=== PATIENT | female | born 1945 | race Caucasian/White ===

== ENCOUNTER 2021-01-08 16:39 | Inpatient (IN) | payer OTHER ==
[~2021-01-08] VITALS: Ht 167.6 cm; Wt 81.6 kg
--- NOTE | 2021-01-08 17:05 | NUR ---
LAW HIGHTOWER AT PTS BEDSIDE
[2021-01-08] MEDS ORDERED: CINA30TA2 PO (17:14)
[2021-01-08] MEDS ORDERED: AMLO-212 PO (17:14)
[2021-01-08] MEDS ORDERED: FURO-144 PO (17:14)
[2021-01-08] MEDS ORDERED: ASPI-1169 PO (17:14)
[2021-01-08] MEDS ORDERED: ISOS60TA72 PO (17:14)
[2021-01-08] MEDS ORDERED: LISI10TA29 PO (17:14)
[2021-01-08] MEDS ORDERED: CARV12.52 PO (17:14)
[2021-01-08] MEDS ORDERED: SEVE800T8 PO (17:14)
--- NOTE | 2021-01-08 17:20 | NUR ---
ASKED ALESIA PEREIRA FOR COVID SWAB
--- NOTE | 2021-01-08 18:10 | NUR ---
ADLS DONE; PT NOTED WITH BLACK TARRY STOOL. ALL NEEDS MET AT THIS TIME. WILL NOTIFY LAW .
--- NOTE | 2021-01-08 18:15 | NUR ---
RAC #20G S/L; PATENT AND INTACT. COLLECTED BLOOD WORK AND SENT TO LAB
--- NOTE | 2021-01-08 18:20 | NUR ---
STOOL SAMPLE COLLECTED AND SENT TO LAB
--- NOTE | 2021-01-08 18:23 | NUR ---
XRAY AT PT'S BESIDE
[2021-01-08 18:30] LABS: BASOPHILS % (AUTO) 0.1 % (0.0-2.0); HEMATOCRIT 32 % (33-45); LYMPHOCYTES # (AUTO) 0.4 K/uL (0.8-4.8); LYMPHOCYTES % (AUTO) 3.9 % (20.0-44.0); MEAN CORPUSCULAR HGB CONC 34 g/dl (31.0-36.0); MEAN CORPUSCULAR VOLUME 100 fL (82-100); MONOCYTES # (AUTO) 0.4 K/uL (0.1-1.30); MONOCYTES % (AUTO) 3.8 % (2.0-12.0); NEUTROPHILS % (AUTO) 92.2 % (43.0-81.0); PLATELET COUNT (AUTO) 163 K/uL (150-450); WHITE BLOOD COUNT (AUTO) 9.8 K/uL (4.3-11.0)
[2021-01-08 18:35] LABS: OCCULT BLOOD STOOL POSITIVE (NEGATIVE)
--- NOTE | 2021-01-08 18:50 | NUR ---
COVID SWAB DONE AND SENT
[2021-01-08 19:25] LABS: TOTAL PROTEIN, SERUM 6.4 g/dL (6.4-8.2)
[2021-01-08 19:39] LABS: ALANINE AMINOTRANSFERASE 50 U/L (12-78); ALBUMIN 2.6 g/dL (3.4-5.0); ALKALINE PHOSPHATASE 58 U/L (46-116); ASPARTATE AMINOTRANSFERASE 116 U/L (15-37); BILIRUBIN,DIRECT 0.2 mg/dL (0.0-0.2); BILIRUBIN,TOTAL 0.6 mg/dL (0.2-1.0); CALCIUM, SERUM 7.7 mg/dL (8.5-10.1); CARBON DIOXIDE 20 mmol/L (21-32); CHLORIDE 91 mmol/L (98-107); GLUCOSE 213 mg/dL (74-106); POTASSIUM 3.7 mmol/L (3.5-5.1); SODIUM SERUM 131 mmol/L (136-145)
[2021-01-08 19:40] LABS: UREA NITROGEN, BLOOD 81 mg/dL (7-18)
--- NOTE | 2021-01-08 19:40 | NUR ---
BUN 81 CR 9.0
--- NOTE | 2021-01-08 20:01 | NUR ---
REPORT GIVEN TO RYAN LUCAS FOR ANDRES
[2021-01-08 20:20] LABS: CREATINE KINASE, TOTAL 1782 U/L (26-192)
--- NOTE | 2021-01-08 20:29 | NUR ---
DR ESCOBEDO ON THE PHONE W/ DR OBREGON, HOSPITALIST
--- NOTE | 2021-01-08 20:45 | NUR ---
RT AT PT'S BESIDE FOR ABG
[2021-01-08 20:55] LABS: ABG BASE EXCESS -5.7 mmol/L; ABG PCO2 23.5 mmHg (35.0-45.0); ABG PH 7.463 (7.350-7.450); ABG PO2 56.7 mmHg (75.0-100.0); COHb 0.3 % (0.5-1.5); MetHb 0.2 % (0.0-1.5); O2Hb 86.8 % (94.0-97.0); SITE, ABG Right Radial; VENT MODE, BG Simple Mask
--- NOTE | 2021-01-08 20:55 | NUR ---
PT TRANSFERRED TO [facility] 119-1 VIA ACLS PROTOCOL. VSS. ALL BELONGINGS WITH PT
[2021-01-08 21:00] VITALS: BP 113/51
[2021-01-08] MEDS ORDERED: ACETAMINOPHEN 325 MG TABLET PO PRN (21:30)
[2021-01-08] MEDS: DEXAMETHASONE SOD PHOSPHATE 10 MG/ML VIAL IV SCH (22:07)
--- NOTE | 2021-01-08 22:12 | NUR ---
[facility] RN NOTE JAMEL FROM PHARMACY INFOMED ME THAT DUE TO RENAL ISSUES NO LONGER PT NEED REMDESIVIR, ALSO PER JAMEL HE CONFIMES WITH DR OBREGON. ALL NEW ADMITTING ORDERS NOTED, AND INFORMED TO NURSE RYAN RN TO FOLLOW UP.
--- NOTE | 2021-01-08 22:30 | NUR ---
CEMENT RAILROAD CAR LOADER NOTE VERIFIED WITH MD PT ADMITTING STATUS, PER OK TO CHANGE TO TELE. NURSE RYAN INFORMED.
--- NOTE | 2021-01-08 23:00 | NUR ---
RN NOTE 2049 ADMITTED PT WITH DX OF COVID PNA. PT ROMANSH SPEAKING, TRANSLATED WITH OTHER NURSE, PT ALERT AND ORIENTED X3. NOT IN ANY DISTRESS. PT ON O2 VIA SIMPLE MASK AT 6L. SATING AT 95%. PT WITH AV SHUNT ON LEFT AR, BRUIT AND THRILL PRESENT. DRESSING INTACT, NO BLEEDING NOTED. PT IV LINE ON RAC, PATENT AND INTACT. SKIN CHECK DONE SOME REDNESS NOTED, AND BRUISES ON BOTH HAND WITH SKIN TEAR ON LHAND AND ABDOMEN AREA. CALLED PT DAUGHTER SHERI, OBTAINED PTS MEDICAL HISTORY. PER DAUGHTER PT TESTED COVID POSITIVE 5 DAYS AGO AND IN A FACILITY FOR QUARANTINE. PT LIVES WITH AND SON. WILL CONTINUE TO MONITOR.
[2021-01-09] VITALS (14 sets, daily range): BP systolic 89–152; BP diastolic 45–87
[2021-01-09 02:21] LABS: BASOPHILS # (AUTO) 0.1 K/uL (0.0-0.2); BASOPHILS % (AUTO) 0.5 % (0.0-2.0); HEMATOCRIT 34 % (33-45); HEMOGLOBIN 11.7 g/dL (11.5-14.8); LYMPHOCYTES # (AUTO) 0.4 K/uL (0.8-4.8); LYMPHOCYTES % (AUTO) 2.8 % (20.0-44.0); MEAN CORPUSCULAR HGB CONC 35 g/dl (31.0-36.0); MEAN CORPUSCULAR VOLUME 98 fL (82-100); MONOCYTES # (AUTO) 0.4 K/uL (0.1-1.30); MONOCYTES % (AUTO) 2.9 % (2.0-12.0); NEUTROPHILS # (AUTO) 12.2 K/uL (1.8-8.9); NEUTROPHILS % (AUTO) 93.8 % (43.0-81.0); PLATELET COUNT (AUTO) 166 K/uL (150-450); RED BLOOD CELL COUNT(AUTO) 3.42 MIL/uL (4.0-5.2)
[2021-01-09 02:49] LABS: ALANINE AMINOTRANSFERASE 47 U/L (12-78); ALBUMIN 2.4 g/dL (3.4-5.0); ALKALINE PHOSPHATASE 63 U/L (46-116); ASPARTATE AMINOTRANSFERASE 100 U/L (15-37); BILIRUBIN,TOTAL 0.6 mg/dL (0.2-1.0); CALCIUM, SERUM 7.7 mg/dL (8.5-10.1); CARBON DIOXIDE 22 mmol/L (21-32); CHLORIDE 90 mmol/L (98-107); GLUCOSE 279 mg/dL (74-106); POTASSIUM 4.2 mmol/L (3.5-5.1); SODIUM SERUM 131 mmol/L (136-145); TOTAL PROTEIN, SERUM 6.2 g/dL (6.4-8.2)
[2021-01-09 03:45] LABS: CREATININE 9.3 mg/dL (0.6-1.3); UREA NITROGEN, BLOOD 88 mg/dL (7-18)
[2021-01-09 03:46] LABS: C-REACTIVE PROTEIN 9.8 mg/dL (0.0-0.9)
--- NOTE | 2021-01-09 04:50 | NUR ---
RN NOTE PT TROPONIN TRENDING UP LATEST 0.490. PT DENIES CHEST PAIN. AFIB CONTROLLED ON TELE MONITOR SINCE ADMISSION. DR OBREGON MADE AWARE. NO ORDERS AT THIS TIME, PT WITH PENDING CARDIO CONSULT.
--- NOTE | 2021-01-09 07:28 | NUR ---
RN NOTE PT REMAINS IN BED. ON 10L O2 VIA SIMPLE MASK. PT WITH EPISODES OF REMOVING O2 MASK, DESATS TO 70S. NO SIGNS OF RESP DISTRESS NOTED. RE-EDUCATED PATIENT. DR OBREGON MADE AWARE. OBTAINED AN ORDER FOR WRIST SOFT RESTRAINTS. ENDORSED TO NEXT SHIFT NURSE FOR ANDRES.
--- NOTE | 2021-01-09 07:45 | NUR ---
RN MORNING NOTE PT RECEIVED IN BED AND IS CURRENTLY ON 10L O2 VIA SIMPLE MASK AND SATING 83%. PT IS AOX3 AND TURKS AND CAICOS ISLANDER SPEAKING. PT HAS SOFT WRIST RESTRAINTS DUE TO EPISODES OF REMOVING O2 MASK, DESATS TO 70S. NO SIGNS OF RESPIRATORY DISTRESS OR LABORED BREATHING NOTED. R AC 20G IS PATENT AND INTACT WITH NO SIGNS OF INFILTRATION, DEYVI AV SHUNT. BED IS LOCKED IN LOWEST POSITION X3 GUARDRAILS UP, CALL MALDONADO WITHIN REACH, AND ALL HOSPITAL SAFETY PRECAUTIONS ARE IN PLACE. WILL CONTINUE TO MONITOR THROUGHOUT SHIFT.
[2021-01-09] MEDS: DEXAMETHASONE SOD PHOSPHATE 10 MG/ML VIAL IV SCH (08:17)
--- NOTE | 2021-01-09 08:30 | NUR ---
RN NOTES PT BP 97/53 BP MEDICATIONS HELD
[2021-01-09] MEDS: ASPIRIN 81 MG TAB.CHEW PO SCH (08:46)
[2021-01-09] MEDS: SEVELAMER CARBONATE 800 MG POWD.PACK GT SCH ×3 (08:47→17:49)
[2021-01-09] MEDS: ISOSORBIDE MONONITRATE (30MG) 30 MG TAB.SR.24H PO SCH (08:47)
[2021-01-09] MEDS: CINACALCET HCL 30 MG TABLET PO SCH (08:47)
[2021-01-09] MEDS ORDERED: LISINOPRIL (10MG) 10 MG TABLET PO SCH (09:00)
[2021-01-09] MEDS ORDERED: FUROSEMIDE 40 MG TABLET PO SCH (09:00)
[2021-01-09] MEDS ORDERED: AMLODIPINE BESYLATE 5 MG TABLET PO SCH (09:00)
[2021-01-09] MEDS ORDERED: CARVEDILOL 12.5 MG TABLET PO SCH (09:00)
[2021-01-09] MEDS ORDERED: PIPERACILLIN /TAZOBACTAM 3.375 G in IV D5W 50 ML IV SCH (10:30)
[2021-01-09] MEDS: HEPARIN SODIUM, PORCINE 5000 UNITS/1 ML VIAL SQ SCH ×2 (10:48→17:48)
[2021-01-09] MEDS ORDERED: VANCOMYCIN 1 GM in IV D5W 250 ML IV ONE (11:00)
[2021-01-09] MEDS: PIPERACILLIN /TAZOBACTAM 2.25 G in IV D5W 50 ML IV SCH ×2 (12:46→21:17)
--- NOTE | 2021-01-09 18:30 | NUR ---
RN CLOSING NOTE PT LYING IN BED WITH HOB AT 30 DEGREES AND IS CURRENTLY ON 8L O2 VIA SIMPLE MASK AND SATING 95%. PT IS AOX3 AND LAO SPEAKING. PT HAS SOFT WRIST RESTRAINTS DUE TO EPISODES OF REMOVING O2 MASK, DESATS TO 70S. NO SIGNS OF RESPIRATORY DISTRESS OR LABORED BREATHING NOTED. R AC 20G IS PATENT AND INTACT WITH NO SIGNS OF INFILTRATION, DEYVI AV SHUNT. PT CURRENTLY RECEIVING HD. BED IS LOCKED IN LOWEST POSITION X3 GUARDRAILS UP, CALL MALDONADO WITHIN REACH, AND ALL HOSPITAL SAFETY PRECAUTIONS ARE IN PLACE. ALL NEEDS MET WILL ENDORSE TO KETTLE OPERATOR HEAD NURSE FOR ANDRES.
[2021-01-09] MEDS ORDERED: IV NS 0.9% 500 ML IV ONE ×2 (19:30→20:30)
--- NOTE | 2021-01-09 20:15 | NUR ---
ELECTRICAL SYSTEMS DESIGN ENGINEER CALL PLACED TO MINDI TO REQUEST PICC LINE PT WAS TRANSFERRED FROM [facility] S/P BOX WORKER FOR HYPOTENSION W/ORDERS TO START LEVOPHED FROM DR OBREGON. DR OBREGON UNAWARE THAT PT WAS TRANSFERRED TO ICU; HE DID NOT SIGN WRITER LETTERER OR PAINTER ORDERS TO TRANSFER OR START LEVO. UPDATED DR OBREGON ON PT SITUATION HE ORDERED NS 500 ML AND TO DC COREG.
--- NOTE | 2021-01-09 20:15 | NUR ---
RN NOTE 1927 AT CHANGE OF SHIFT DAY SHAYY CASTAÑEDA, RECEIVED ORDER FOR NS 500 ML BOLUS D/T BP 83/30. BOLUS WAS GIVEN VIA DIALYSIS ACCESS. THIS IS THE SECOND BOLUS FOR THIS PATIENT. 1940, BP TAKEN 43/19. HD STOPPED. HD LASTED ONLY ONE AND A HALF, JUST CLEANED, NO OUTPUT. DR. BLUE MANAGER OF CARE CALLED, NOTIFIED OF BP AND GAVE ORDERS TO CALL RAPID RESPONSE AT 1940 AND TRANSFER PATIENT TO ICU AND START LEVO. PATIENT RECEIVED ON 8L SIMPLE MASK, SATURATION 76%, CHANGE TO RNB 15L D/T PATIENT HAVING SOB. O2 SAT 99% ER NURSE AT [facility] AT BEDSIDE, HUMBERT[facility] NURSING PANEL FLOW MACHINE OPERATOR AT BEDSIDE, INFORMED DR. BLUE WANTS PATIENT TO BE TRANSFERRED TO ICU. RT AT BEDSIDE. 1943 BP 103/61 HR 101 O2 SAT 100%. AWAITING ICU BED. THERE IS A CODE IN ICU. STAND BY FOR TRANSFER. 1953 96/46 HR 93 O2 SAT 100%, RECEIVED BED 261. 2003 BP 40/19 HR 100 O2 SAT 100%. TRANSFER PATIENT, ALL MEDS, BELONGINGS AND CHART TAKEN WITH PATIENT. CALLED TO GIVE REPORT TO ABDELRAHMAN MENTAL HEALTH COORDINATOR. DR. OBREGON NOTIFIED OF PATIENT CHANGE IN CONDITION AND TRANSFER TO ICU AND STAT ABG DONE , WAITING FOR RESULT. UNABLE TO CALL FAMILY PATIENTS CHART WAS TAKEN DURING TRANSFER. 2010 PATIENT TRANSFER VIA ACLS PROTOCOL.
--- NOTE | 2021-01-09 20:20 | NUR ---
EMBOSSING MACHINE OPERATOR CALLED PTS DAUGHTER SHERI AND UPDATED HER REGARDING MOM BEING TRANSFERRED TO ICU AND TO OBTAIN CONSENT FOR PICC LINEL [facility] DID NOT INFORM PTS DAUGHTER OF TRANSFER.
--- NOTE | 2021-01-09 20:25 | NUR ---
ACCOUNT PROCESSOR PER REPORT PT IS A/O x3 HOWEVER PER NURSE SHE NEVER ASSESSED PT; PT APPEARS LETHARGIC NOT ANSWERING QUESTIONS; JUST MOANING. AFIB ON MONITOR HR 99 115/52 NRB 15 L 100%. REMOVED BLSW RESTRAINTS.
--- NOTE | 2021-01-09 20:30 | NUR ---
DR OBREGON AWARE OF PT MOVED TO ICU AND ALSO NURSE FROM ICU WILL FOLLOW UP WITH STAT ABG RESULT.
--- NOTE | 2021-01-09 20:30 | NUR ---
TRAVEL RN NS 500 ML BOLUS FROM 2029 SCANNED AND GIVEN IN ICU NOT IN [facility].
[2021-01-09 20:32] LABS: ABG BASE EXCESS -3.9 mmol/L; ABG OXYGEN SATURATION 97.2 % (92.0-98.5); ABG PCO2 23.4 mmHg (35.0-45.0); ABG PH 7.501 (7.350-7.450); ABG PO2 106.8 mmHg (75.0-100.0); AaDO2 582.8 mmHg; COHb 0.3 % (0.5-1.5); MetHb 0.2 % (0.0-1.5); O2Hb 96.7 % (94.0-97.0); SITE, ABG Right Radial; VENT MODE, BG NRB 15L 100%
--- NOTE | 2021-01-09 20:35 | NUR ---
COMMUTER PILOT RCD PT WITH YELLOW RING, YELLOW WATCH AND YELLOW/WHITE BRACELET NOT DOCUMENTED IN BELONGINGS SHEET.
--- NOTE | 2021-01-09 20:39 | NUR ---
VACUUM DRIER TENDER CALLED DR OBREGON TO INFORM OF ABG RESULTS pH 7.501 pCO2 23.4 pO2 106.[address] OBREGON CALL THE ORDERING MD ONCE AGAIN TOLD DR OBREGON IT WAS ORDERED UNDER HIS NAME. CALLED [facility] AND ASKED PRIMARY AND CHARGE WHO ORDERED ABG BOTH INSISTED DR OBREGON ORDERED IT. REPEATEDLY TOLD [facility] CHARGE DR OBREGON DENIES GIVING ANY ORDERS ON THIS PT. PER [facility] CHARGE HE WILL CALL DR OBREGON.
--- NOTE | 2021-01-09 23:00 | NUR ---
SLEEVE BASTER RCD CALL FROM PTS DAUGHTER SHERI EXPLAINED TO HER LEVOPHED WAS NEVER STARTED PER DAUGHTER SHE STATES SHE HAD ALREADY INFORMED MD THAT PTS BP DROPS DURING HD. DAUGHTER STATED MOM IS VERY ANXIOUS AND HAS A HARD TIME SEEING AND REQUESTED ALL LIGHTS BE TURNED OFF IN THE ROOM. DAUGHTER ATTEMPTED TO S/W PT HOWEVER PT IS AWAKE AND NOT ANSWERING; DR OBREGON MADE AWARE OF PTS NEURO STATUS.
[2021-01-10] VITALS (42 sets, daily range): BP systolic 89–205; BP diastolic 55–127
[2021-01-10 04:59] LABS: BASOPHILS % (AUTO) 0.1 % (0.0-2.0); HEMATOCRIT 30 % (33-45); HEMOGLOBIN 10.2 g/dL (11.5-14.8); LYMPHOCYTES # (AUTO) 0.3 K/uL (0.8-4.8); MEAN CORPUSCULAR HGB CONC 34 g/dl (31.0-36.0); MEAN CORPUSCULAR VOLUME 101 fL (82-100); MONOCYTES # (AUTO) 0.4 K/uL (0.1-1.30); MONOCYTES % (AUTO) 2.7 % (2.0-12.0); NEUTROPHILS % (AUTO) 95.2 % (43.0-81.0); PLATELET COUNT (AUTO) 171 K/uL (150-450); RED BLOOD CELL COUNT(AUTO) 2.98 MIL/uL (4.0-5.2); WHITE BLOOD COUNT (AUTO) 15.7 K/uL (4.3-11.0)
--- NOTE | 2021-01-10 05:10 | NUR ---
SCHEDULER CONVEYOR PT NOTED TO DESATURATE TO ABOUT 84% WHEN REMOVING NON REBREATHER MASK.
[2021-01-10] MEDS: IV NS 0.9% 250 ML IV PRN (05:15)
[2021-01-10] MEDS: PIPERACILLIN /TAZOBACTAM 2.25 G in IV D5W 50 ML IV SCH ×3 (05:16→21:27)
[2021-01-10 05:26] LABS: CALCIUM, SERUM 7.5 mg/dL (8.5-10.1); CARBON DIOXIDE 19 mmol/L (21-32); CHLORIDE 96 mmol/L (98-107); GLUCOSE 319 mg/dL (74-106); PHOSPHORUS 6.1 mg/dL (2.5-4.9); POTASSIUM 4.3 mmol/L (3.5-5.1); SODIUM SERUM 134 mmol/L (136-145); UREA NITROGEN, BLOOD 67 mg/dL (7-18)
[2021-01-10 05:35] LABS: CREATININE 7.5 mg/dL (0.6-1.3)
--- NOTE | 2021-01-10 08:00 | NUR ---
RN NOTES RECEIVED PATIENT ON 15L NON-REBREATHER MASK, RESTLESS, READING WHEN CALLED NAME OR TOUCHED, GIVING YES/OR NO ANSWERS. ASSIST TURN AND REPOSTION, ASSIST TOTAL BREAKFAST TOLERATED 75%. KEEP HOB ELEVATED ALL THE TIME DURING EATING. DUE MEDICATION ADMINISTERED VIA CRUSHED. SOFT BILATERAL RESTRAIN RECHECKED. PATIENT HAS HD SHUNT ON LEFT UA INTACT. IV ACCESS ON RIGHT AC AREA INTACT TKO INFUSING 10ML/HR. CALL LIGHT WITHIN TO REACH. WILL FOLLOW UP.
[2021-01-10] MEDS: DEXAMETHASONE SOD PHOSPHATE 10 MG/ML VIAL IV SCH (08:41)
[2021-01-10] MEDS: CINACALCET HCL 30 MG TABLET PO SCH (08:42)
[2021-01-10] MEDS: ASPIRIN 81 MG TAB.CHEW PO SCH (08:42)
[2021-01-10] MEDS: HEPARIN SODIUM, PORCINE 5000 UNITS/1 ML VIAL SQ SCH ×2 (08:42→17:28)
[2021-01-10] MEDS: SEVELAMER CARBONATE 800 MG POWD.PACK GT SCH ×3 (08:43→17:27)
[2021-01-10] MEDS ORDERED: VANCOMYCIN 500 MG in IV D5W 100 ML IV PRN (11:00)
[2021-01-10 11:27] LABS: ABG BASE EXCESS -7.2 mmol/L; ABG OXYGEN SATURATION 97.8 % (92.0-98.5); ABG PH 7.454 (7.350-7.450); ABG PO2 120.9 mmHg (75.0-100.0); AaDO2 570.1 mmHg; COHb 0.3 % (0.5-1.5); MetHb 0.1 % (0.0-1.5); O2Hb 97.4 % (94.0-97.0); SITE, ABG Right Radial; VENT MODE, BG non rebreather
[2021-01-10] MEDS: METOPROLOL TARTRATE 25 MG TABLET PO SCH ×2 (12:00→22:03)
--- NOTE | 2021-01-10 12:30 | NUR ---
rn notes held Lopressor at this time, because Imdur administered late, patient plan for HD, called HD nurse for confirm HD time. bp was 79/43 at this time , the increased 200/100 later . 1600-Per Dr Castellano patient willing to hemodialyzed tomorrow morning. will follow up.
--- NOTE | 2021-01-10 13:00 | NUR ---
rn notes patient put back to non-rebreather mask because of saturation going down. assist eating tolerated lunch 10%, assist turn and reflation q 2 hr.
[2021-01-10] MEDS: ISOSORBIDE MONONITRATE (30MG) 30 MG TAB.SR.24H PO SCH (14:47)
--- NOTE | 2021-01-10 18:30 | NUR ---
rn notes pm care done, due medication administered, vss, tolerated dinner 15% , patient prone to aspiration precaution, ,anuric, HD scheduled tomorrow am. assist turn and reposition q 2 hr. endorsed oncoming nurse follow plan of care.
[2021-01-11] VITALS (39 sets, daily range): BP systolic 81–157; BP diastolic 45–89
[2021-01-11] MEDS: IV NS 0.9% 250 ML IV PRN (00:37)
[2021-01-11 05:05] LABS: HEMATOCRIT 28 % (33-45); HEMOGLOBIN 9.6 g/dL (11.5-14.8); LYMPHOCYTES # (AUTO) 0.2 K/uL (0.8-4.8); LYMPHOCYTES % (AUTO) 1.6 % (20.0-44.0); MEAN CORPUSCULAR HGB CONC 35 g/dl (31.0-36.0); MEAN CORPUSCULAR VOLUME 102 fL (82-100); MONOCYTES # (AUTO) 0.2 K/uL (0.1-1.30); MONOCYTES % (AUTO) 1.8 % (2.0-12.0); NEUTROPHILS # (AUTO) 9.2 K/uL (1.8-8.9); NEUTROPHILS % (AUTO) 96.6 % (43.0-81.0); PLATELET COUNT (AUTO) 122 K/uL (150-450); RED BLOOD CELL COUNT(AUTO) 2.71 MIL/uL (4.0-5.2); WHITE BLOOD COUNT (AUTO) 9.6 K/uL (4.3-11.0)
[2021-01-11] MEDS: PIPERACILLIN /TAZOBACTAM 2.25 G in IV D5W 50 ML IV SCH ×3 (05:13→20:47)
[2021-01-11 05:44] LABS: CARBON DIOXIDE 18 mmol/L (21-32); CHLORIDE 94 mmol/L (98-107); POTASSIUM 4.5 mmol/L (3.5-5.1); SODIUM SERUM 133 mmol/L (136-145)
[2021-01-11 06:01] LABS: GLUCOSE 546 mg/dL (74-106)
[2021-01-11 06:02] LABS: CREATININE 8.8 mg/dL (0.6-1.3); UREA NITROGEN, BLOOD 91 mg/dL (7-18)
--- NOTE | 2021-01-11 06:16 | NUR ---
RN/ICU- CRITICAL LAB VALUE REPORTED BY LAB. BUN/CREATININE-91/8.7, BS-546, RELAYED TO DR. GHAZAL Key/ ORDER NOTED.
[2021-01-11] MEDS ORDERED: INSULIN REGULAR, HUMAN 100 UNIT/ML 3 ML VIAL SQ PRN (06:30)
[2021-01-11] MEDS ORDERED: *INSULIN REGULAR(HUMULIN R)HUM 100 UNIT/ML VIAL SQ PRN (06:30)
[2021-01-11] MEDS ORDERED: DEXTROSE 50%-WATER 50 ML DISP.SYRIN IV PRN ×2 (06:30→13:00)
--- NOTE | 2021-01-11 06:50 | NUR ---
RN/ICU- PT. REPOSITIONED TO SIDE, PT. RESTLESS, GRABBING O2 MASK, VERBAL REMINDER GIVEN, PT, REMAINS AGITATED AND NON-COMPLIANT.WILL OBTAIN ORDER FORM MD AND APPLY ALBARO. SOFT WRIST RESTRAINTS PER PROTOCOL.
[2021-01-11 07:20] LABS: C-REACTIVE PROTEIN 27.7 mg/dL (0.0-0.9)
--- NOTE | 2021-01-11 07:30 | NUR ---
RN NOTES RECEIVED PATIENT ON 15L NON-REBREATHER MASK, ASLEEP, LETHARGIC, RESPONDS TO NAME AND TOUCH, BREATHING LABORED BUT SATURATING AT 98%, GIVING YES/OR NO ANSWERS. ASSIST TURN AND REPOSITION, UNABLE TO EAT BREAKFAST, UNABLE TO FOLLOW COMMAND. KEEP HOB ELEVATED.SOFT BILATERAL RESTRAIN RECHECKED. PATIENT HAS HD SHUNT ON LEFT UA INTACT. IV ACCESS ON RIGHT AC AREA INTACT TKO INFUSING 10ML/HR. CALL LIGHT WITHIN TO REACH. WILL FOLLOW UP. FOR HD TODAY.
[2021-01-11] MEDS: BLOOD SUGAR DIAGNOSTIC 1 EACH STRIP IN SCH ×4 (07:43→17:43)
[2021-01-11] MEDS: ASPIRIN 81 MG TAB.CHEW PO SCH (08:17)
[2021-01-11] MEDS: SEVELAMER CARBONATE 800 MG POWD.PACK GT SCH ×3 (08:17→17:50)
[2021-01-11] MEDS: ISOSORBIDE MONONITRATE (30MG) 30 MG TAB.SR.24H PO SCH (08:22)
[2021-01-11] MEDS: CINACALCET HCL 30 MG TABLET PO SCH (08:22)
[2021-01-11] MEDS: DEXAMETHASONE SOD PHOSPHATE 10 MG/ML VIAL IV SCH ×3 (08:27→21:10)
[2021-01-11] MEDS: HEPARIN SODIUM, PORCINE 5000 UNITS/1 ML VIAL SQ SCH ×2 (08:29→17:52)
[2021-01-11] MEDS ORDERED: METOPROLOL TARTRATE 25 MG TABLET PO SCH ×2 (08:30→09:00)
--- NOTE | 2021-01-11 09:00 | NUR ---
RN NOTES PATIENT UNABLE TO SWALLOW VERY LETHARGIC. CHARGE NURSE AWARE. O2 SAT AT 96% NON REBREATHER MASK
[2021-01-11] MEDS ORDERED: METOPROLOL TARTRATE INJ 5 MG/5 ML AMPUL IVP SCH (09:30)
[2021-01-11] MEDS: INSULIN GLARGINE, 100 UNIT/ML CARTRIDGE SQ SCH ×2 (09:59→21:58)
[2021-01-11] MEDS: IV NS 0.9% 1,000 ML IV PRN (10:01)
--- NOTE | 2021-01-11 10:07 | NUR ---
RN NOTES' RELAYED TO DR. OBREGON PT PCR POSITIVE.
[2021-01-11] MEDS ORDERED: TOCILIZUMAB 400 MG in IV NS 0.9% 80 ML IV ONE (10:30)
[2021-01-11] MEDS: ALBUMIN 25% 25 GM in PREMIX 1 EA IV PRN (12:20)
[2021-01-11 12:50] LABS: ABG BASE EXCESS 0.4 mmol/L; ABG PCO2 36.4 mmHg (35.0-45.0); ABG PH 7.443 (7.350-7.450); ABG PO2 59.2 mmHg (75.0-100.0); AaDO2 617.4 mmHg; COHb 0.4 % (0.5-1.5); MetHb 0.3 % (0.0-1.5); O2Hb 87.4 % (94.0-97.0); SITE, ABG Right Radial; VENT MODE, BG NON REBREATHER
--- NOTE | 2021-01-11 12:59 | NUR ---
RN NOTES PT ONGOING DIALYSIS. 2 BOTTLES ALBUMIN GIVEN. LOW BP. ALSO NOTIFIED DR. OBREGON LABORED BREATHING USING ACCESSORY MUSCLE. ABG RELAYED. PER DR. OBREGON, OK TO INTUBATE IF OK IF OK WITH PULMO.
[2021-01-11] MEDS: METOPROLOL TARTRATE INJ 5 MG/5 ML AMPUL IVP SCH ×2 (13:00→17:54)
--- NOTE | 2021-01-11 13:00 | NUR ---
@ 1300 pt. placed into high flow nasal cannula due to 84% saturation and 59 paO2 on non rebreathing mask. high flow parameters below as order: flow 40L 100% fio2 Addendum: 01/11/21 at 1431 by MORGAN FRANCOIS RT Amended: Links added.
--- NOTE | 2021-01-11 13:17 | NUR ---
RN NOTES DAUGHTER SHERI - UPDATE GIVEN WITH PT HAVING LABORED BREATHING WITH USE OF ACCESSORY MUSCLE. INFORMED ABOUT PULVENESSA HIGHTOWER OKAYED FOR INTUBATION. PER DAUGHTER, SHE WILL CALL HER BROTHER FIRST.
--- NOTE | 2021-01-11 13:33 | NUR ---
RN NOTES PER SHERI - DAUGHTER, IS CONCERNED THAT HER MOM IS NOT EATING AND NOT DIALYSED, AND THAT THEY WANT TO TRANSFER THE PATIENT TO ANOTHER HOSPITAL. DAUGHTER INFORMED THAT HER MOM IS BEING DIALYSED BUT NOT COMPLETED DUE TO LOW BP. CHARGE NURSE NATHANAEL ALSO SPOKE WITH DAUGHTER, BUT STILL COULD NOT DECIDE AND ANSWERED ANOTHER PHONE CALL AND HANG UP.
[2021-01-11] MEDS: INSULIN REGULAR, HUMAN 100 UNIT/ML 3 ML VIAL SQ PRN ×2 (13:55→17:49)
--- NOTE | 2021-01-11 14:00 | NUR ---
RN NOTES PER DAUGHTER MEDHAT WADE TO INTUBATE.
--- NOTE | 2021-01-11 14:45 | NUR ---
RN NOTES POST HD, NOT COMPLETED. 2 HOURS ONLY. CLEANSING ONLY
[2021-01-11] MEDS ORDERED: VANCOMYCIN 1 GM in IV D5W 250 ML IV ONE (15:00)
--- NOTE | 2021-01-11 15:18 | NUR ---
@ 1518 PT INTUBATED DUE TO INCREASE WORK OF BREATHING AND FOR AIRWAY PROTECTION. INTUBATED WITH 7.5 ET TUBE SECURED @ 23 CM LIPLINE. CO2 DETECTOR CHANGED TO YELLOW COLOR POST INTUBATION. BREATH SOUNDS CLEAR BILATERAL WITH SYMMETRICAL CHEST RISE POST INTUBATION. VENT PARAMETERS BELOW ORDER: AC 24 VT 500 FIO2 100% PEEP +7 VENT IS PLUGGED INTO RED OUTLET WITH ALARMS ON AND FUNCTIONING. KAYLYNG @ BEDSIDE. Addendum: 01/11/21 at 1552 by MORGAN FRANCOIS RT Amended: Links added.
--- NOTE | 2021-01-11 15:18 | NUR ---
RN NOTES POST INTUBATION. ETT 7.5 AC 24 TV 500 FIO2 100% P 7 CXR ORDERED
--- NOTE | 2021-01-11 15:50 | NUR ---
ADDENDUM GAVE UPDATE TO DR. OBREGON.
[2021-01-11] MEDS ORDERED: ROCURONIUM BROMIDE 50 MG/5 ML IV ONE (15:58)
[2021-01-11] MEDS ORDERED: ETOMIDATE 2 MG/ML VIAL IV ONE (15:58)
[2021-01-11 17:27] LABS: ABG OXYGEN SATURATION 95.9 % (92.0-98.5); ABG PCO2 28.8 mmHg (35.0-45.0); ABG PH 7.492 (7.350-7.450); ABG PO2 85.9 mmHg (75.0-100.0); AaDO2 598.3 mmHg; COHb 0.3 % (0.5-1.5); MetHb 0.3 % (0.0-1.5); O2Hb 95.3 % (94.0-97.0); PEEP,BG 7 cm H2O; SITE, ABG Right Radial; VT, ABG 500 mL
--- NOTE | 2021-01-11 17:38 | NUR ---
vent changes below per dr. sosa: decrease rate from 24 to 20. RN NOTIFIED ON CHANGES MADE. Addendum: 01/11/21 at 1740 by MORGAN FRANCOIS RT Amended: Links added.
[2021-01-11] MEDS: PROPOFOL 100 ML IV PRN (17:39)
--- NOTE | 2021-01-11 19:27 | NUR ---
FULL STACK PHP DEVELOPER NOTES PT SEDATED ON DIPRIVAN 5MCG/KG/MIN. TOLERATING VENT SETTINGS WELL. NO SOB. ALL DUE MEDS GIVEN. NEEDS ATTENDED. KEPT CLEAN AND COMFORTABLE. SAFETY MEASURES IN PLACE. BED LOCKED AND IN LOWEST POSITON WITH SIDE RAILS UP. ENDORSED TO NIGHT RN FOR ANDRES. Addendum: 01/11/21 at 1931 by ISAIAS WESTON RN CORRECTION DIPRIVAN TO 10 MCG AT 1754
[2021-01-12] VITALS (40 sets, daily range): BP systolic 82–132; BP diastolic 39–76
[2021-01-12] MEDS: IV NS 0.9% 1,000 ML IV PRN (00:06)
[2021-01-12] MEDS: BLOOD SUGAR DIAGNOSTIC 1 EACH STRIP IN SCH ×4 (00:08→18:16)
[2021-01-12] MEDS: INSULIN REGULAR, HUMAN 100 UNIT/ML 3 ML VIAL SQ PRN ×3 (00:10→18:17)
[2021-01-12] MEDS: PROPOFOL 100 ML IV PRN ×3 (02:08→17:31)
--- NOTE | 2021-01-12 04:26 | NUR ---
RN notes In bed, sedated with vital signs wnl. On profopol at 10mcg/kg/hr tolerating well. No distress noted. Breathing even and unlabored. Vent settings tolerated well. No physical manifestation of pain or discomfort. No urine output with 1 bowel movement. REmains afebrile with skin warm and dry to touch. Kept clean and dry. Will endorse to next shift for continuity of care.
[2021-01-12 04:41] LABS: HEMATOCRIT 26 % (33-45); HEMOGLOBIN 8.8 g/dL (11.5-14.8); LYMPHOCYTES # (AUTO) 0.1 K/uL (0.8-4.8); LYMPHOCYTES % (AUTO) 2.1 % (20.0-44.0); MEAN CORPUSCULAR HGB CONC 34 g/dl (31.0-36.0); MEAN CORPUSCULAR VOLUME 102 fL (82-100); MONOCYTES # (AUTO) 0.1 K/uL (0.1-1.30); MONOCYTES % (AUTO) 2.1 % (2.0-12.0); NEUTROPHILS # (AUTO) 6.5 K/uL (1.8-8.9); NEUTROPHILS % (AUTO) 95.8 % (43.0-81.0); PLATELET COUNT (AUTO) 83 K/uL (150-450); RED BLOOD CELL COUNT(AUTO) 2.52 MIL/uL (4.0-5.2); WHITE BLOOD COUNT (AUTO) 6.8 K/uL (4.3-11.0)
[2021-01-12 04:53] LABS: CALCIUM, SERUM 8.4 mg/dL (8.5-10.1); CARBON DIOXIDE 22 mmol/L (21-32); CHLORIDE 105 mmol/L (98-107); CREATININE 6.2 mg/dL (0.6-1.3); POTASSIUM 4.3 mmol/L (3.5-5.1); SODIUM SERUM 141 mmol/L (136-145); UREA NITROGEN, BLOOD 58 mg/dL (7-18)
[2021-01-12 04:59] LABS: GLUCOSE 77 mg/dL (74-106)
[2021-01-12] MEDS: PIPERACILLIN /TAZOBACTAM 2.25 G in IV D5W 50 ML IV SCH ×3 (05:07→20:05)
[2021-01-12] MEDS: DEXAMETHASONE SOD PHOSPHATE 10 MG/ML VIAL IV SCH ×3 (05:13→20:04)
[2021-01-12] MEDS: METOPROLOL TARTRATE INJ 5 MG/5 ML AMPUL IVP SCH ×2 (05:43)
--- NOTE | 2021-01-12 05:44 | NUR ---
FIO2 TITRATED TO 60%, RN NOTIFIED.
[2021-01-12] MEDS ORDERED: VANCOMYCIN 500 MG in IV D5W 100 ML IV PRN (06:00)
[2021-01-12 06:28] LABS: BAND % (MANUAL) 7 % (0.0-5.0); LYMPHOCYTES % (MANUAL) 7 % (16-48); METAMYELOCYTES % 1 % (0-0); NEUTROPHILS % (MANUAL) 85 (42-76)
--- NOTE | 2021-01-12 07:30 | NUR ---
OPENING NOTE: REPORT RECEIVED FROM MELIDA LUCAS. PT INTUBATED, SEDATED ON 10MCG/KG/MIN PROPOFOL. PT DOES NOT APPEAR TO BE IN DISTRESS AT THIS TIME. PT IN ISOLATION FOR COVID, COVID PCR POSITIVE ON 01/08. RECEIVED CALL FROM PT'S HOME DIALYSIS CLINIC, REP STATED PT WAS POSITIVE SINCE LAST WEEK SOMETIME. PT IS UNVACCINATED, ALONG WITH HER FAMILY. PER REP STAFF ATTEMPTED TO CONVINCE PATIENT TO GET VACCINATED BUT SHE REFUSED. PT IS ANURIC. HD DEPENDENT. PT CHECKED ON HOURLY AND PRN BY NURSING STAFF.
[2021-01-12] MEDS: SEVELAMER CARBONATE 800 MG POWD.PACK GT SCH ×3 (07:53→20:06)
[2021-01-12] MEDS ORDERED: PHARMACY TO CHANGE PO MEDS TO GT/NG XX PRN (08:00)
[2021-01-12] MEDS: ASPIRIN 81 MG TAB.CHEW GT SCH (08:26)
[2021-01-12] MEDS: HEPARIN SODIUM, PORCINE 5000 UNITS/1 ML VIAL SQ SCH (08:27)
--- NOTE | 2021-01-12 08:28 | NUR ---
DR. CHEEK NOTIFIED OF PATIENTS PLTS OF 83, ORDER TO HOLD ASPIRIN AND HEPARIN TODAY. IMDUR CHANGE TO NITRO PASTE D/T NGT, UNABLE TO CRUSH IMDUR. CALL OUT TO DR. OBREGON ABOUT HOLDING LANTUS FOR BLOOD GLUCOSE OF 63.
[2021-01-12] MEDS ORDERED: ACETAMINOPHEN 650 MG/20.3 ML UDC PO PRN (08:30)
[2021-01-12] MEDS: NITROGLYCERIN 30 GM TUBE TP SCH ×2 (09:00→21:00)
[2021-01-12] MEDS: INSULIN GLARGINE, 100 UNIT/ML CARTRIDGE SQ SCH (09:00)
[2021-01-12] MEDS: CINACALCET HCL 30 MG TABLET GT SCH (10:28)
[2021-01-12] MEDS ORDERED: GLUCERNA 1.2 1,000 ML BOTTLE NG PRN (11:00)
[2021-01-12] MEDS: DIGOXIN INJ 0.5 MG/2 ML AMPUL IV SCH ×2 (13:02→17:31)
[2021-01-12] MEDS ORDERED: EPOETIN ALFA-EPBX 4,000 UNIT/ML VIAL IV SCH (15:00)
[2021-01-12] MEDS: IV NS 0.9% 250 ML IV PRN (17:40)
[2021-01-12] MEDS: NEPRO 1,000 ML BOTTLE GT PRN (17:47)
--- NOTE | 2021-01-12 18:35 | NUR ---
END OF SHIFT NOTE: PT HAD A FAIRLY UNEVENTFUL SHIFT. TUBE FEEDING STARTED AT 1800, NEPRO AT 10ML/HR. 1 BM THIS SHIFT. NO DIALYSIS TODAY, DIALYSIS IS SCHEDULED FOR TOMORROW. PT IS ANURIC. BLOOD GLUCOSE WAS 104 AND 151 THIS SHIFT. LANTUS WAS HELD THIS AM PER MD ORDERS. PROPOFOL INCREASED TO 20MCG/KG/MIN D/T MILD AGITATION. IVF DC'D TODAY PER MD ORDERS. PT CHECKED ON HOURLY AND PRN BY NURSING STAFF.
[2021-01-12] MEDS: METOPROLOL TARTRATE 25 MG TABLET PO SCH (20:05)
--- NOTE | 2021-01-12 20:11 | NUR ---
RT fio2 increased to 60% from 50% due to spo2 being 90%. natalie morrell, notified
[2021-01-13] VITALS (71 sets, daily range): BP systolic 67–209; BP diastolic 39–120
[2021-01-13] MEDS: DIGOXIN INJ 0.5 MG/2 ML AMPUL IV SCH (00:34)
[2021-01-13] MEDS: BLOOD SUGAR DIAGNOSTIC 1 EACH STRIP IN SCH ×5 (00:37→23:43)
[2021-01-13] MEDS: INSULIN REGULAR, HUMAN 100 UNIT/ML 3 ML VIAL SQ PRN ×5 (00:49→23:44)
[2021-01-13] MEDS: PROPOFOL 100 ML IV PRN ×6 (02:08→19:44)
--- NOTE | 2021-01-13 03:24 | NUR ---
RT fio2 increased from 60% to 70% due to low spo2. natalie morrell, notified
[2021-01-13 05:13] LABS: BASOPHILS % (AUTO) 0.1 % (0.0-2.0); HEMATOCRIT 30 % (33-45); LYMPHOCYTES # (AUTO) 0.2 K/uL (0.8-4.8); LYMPHOCYTES % (AUTO) 2.1 % (20.0-44.0); MEAN CORPUSCULAR HGB CONC 34 g/dl (31.0-36.0); MEAN CORPUSCULAR VOLUME 105 fL (82-100); MONOCYTES # (AUTO) 0.3 K/uL (0.1-1.30); MONOCYTES % (AUTO) 3.3 % (2.0-12.0); NEUTROPHILS # (AUTO) 8.4 K/uL (1.8-8.9); NEUTROPHILS % (AUTO) 94.5 % (43.0-81.0); RED BLOOD CELL COUNT(AUTO) 2.82 MIL/uL (4.0-5.2); WHITE BLOOD COUNT (AUTO) 8.9 K/uL (4.3-11.0)
[2021-01-13 05:18] LABS: CALCIUM, SERUM 8.3 mg/dL (8.5-10.1); CARBON DIOXIDE 18 mmol/L (21-32); CHLORIDE 99 mmol/L (98-107); CREATININE 7.4 mg/dL (0.6-1.3); GLUCOSE 284 mg/dL (74-106); POTASSIUM 4.9 mmol/L (3.5-5.1); SODIUM SERUM 137 mmol/L (136-145)
--- NOTE | 2021-01-13 05:28 | NUR ---
FIO2 INCREASED TO 100% DUE TO LOW O2 SATURATION 85%. RN NOTIFIED.
[2021-01-13] MEDS: DEXAMETHASONE SOD PHOSPHATE 10 MG/ML VIAL IV SCH ×3 (05:29→21:54)
[2021-01-13] MEDS: PIPERACILLIN /TAZOBACTAM 2.25 G in IV D5W 50 ML IV SCH ×3 (05:30→21:48)
[2021-01-13] MEDS: SEVELAMER CARBONATE 800 MG POWD.PACK GT SCH ×3 (05:37→21:52)
[2021-01-13 05:49] LABS: UREA NITROGEN, BLOOD 80 mg/dL (7-18)
[2021-01-13 06:24] LABS: C-REACTIVE PROTEIN 42.1 mg/dL (0.0-0.9)
--- NOTE | 2021-01-13 07:45 | NUR ---
OPENING NOTE: REPORT RECEIVED FROM MELISA HESTER/RN. PT'S FI02 ON THE VENT HAD TO BE INCREASED TO 100% OVERNIGHT D/T LOW SATS. PT IS SCHEDULED TO HAVE DIALYSIS TODAY. VANCO RANDOM THIS AM WAS 24. PENDING PLATELET VALUE THIS AM. 0545 BLOOD GLUCOSE WAS 294, WILL NOTIFY DR OBREGON ABOUT RESTARTING LANTUS THIS AM. TUBE FEEDING NEPRO INFUSING PER MD ORDERS AT 20ML/HR. PT CONTINUES TO BE IN COVID ISOLATION, POSITIVE COVID PCR 01/08/21. PT CHECKED ON HOURLY AND PRN BY NURSING STAFF.
[2021-01-13 08:35] LABS: PLATELET COUNT (AUTO) 77 K/uL (150-450)
[2021-01-13] MEDS: METOPROLOL TARTRATE 25 MG TABLET PO SCH ×2 (09:00→21:00)
[2021-01-13] MEDS: NITROGLYCERIN 30 GM TUBE TP SCH ×2 (09:00→21:00)
[2021-01-13] MEDS: ASPIRIN 81 MG TAB.CHEW GT SCH (09:00)
[2021-01-13] MEDS: CINACALCET HCL 30 MG TABLET GT SCH (09:17)
[2021-01-13] MEDS: MIDODRINE HCL (5MG) 5 MG TABLET NG SCH ×3 (09:18→17:00)
[2021-01-13] MEDS: INSULIN GLARGINE, 100 UNIT/ML CARTRIDGE SQ SCH ×2 (09:22→22:11)
[2021-01-13 10:01] LABS: BAND % (MANUAL) 7 % (0.0-5.0); LYMPHOCYTES % (MANUAL) 4 % (16-48); METAMYELOCYTES % 2 % (0-0); MONOCYTES % (MANUAL) 4 % (0-11.0); NEUTROPHILS % (MANUAL) 80 (42-76)
[2021-01-13 10:02] LABS: MYELOCYTES % 3 % (0-0)
[2021-01-13] MEDS: NOREPINEPHRINE 8 MG in IV NS 0.9% 242 ML IV PRN ×2 (10:06→20:13)
[2021-01-13 11:43] LABS: ABG BASE EXCESS -8.9 mmol/L; ABG OXYGEN SATURATION 95.1 % (92.0-98.5); ABG PH 7.384 (7.350-7.450); ABG PO2 84.7 mmHg (75.0-100.0); AaDO2 603.3 mmHg; COHb 0.3 % (0.5-1.5); MetHb 0.2 % (0.0-1.5); O2Hb 94.6 % (94.0-97.0); PEEP,BG 7 cm H2O; SITE, ABG Right Radial; VT, ABG 500 mL
[2021-01-13] MEDS ORDERED: PROPOFOL 100 ML IV PRN (17:00)
--- NOTE | 2021-01-13 17:00 | NUR ---
DIALYSIS STARTING NOW. ALBUMIN TO BE GIVEN ALONG WITH LEVOPHED INFUSING. MIDODRINE HELD AT THIS TIME D/T DIALYSIS.
[2021-01-13] MEDS: ALBUMIN 25% 25 GM in PREMIX 1 EA IV PRN (17:05)
--- NOTE | 2021-01-13 19:20 | NUR ---
END OF SHIFT NOTE: DIALYSIS STARTED AT 1700. CURRENTLY STILL GETTING DIALYSIS. LEVOPHED INCREASED TO 0.4MCG/KG/MIN TO RAISE BP ENOUGH TO BE ABLE TO TOLERATE DIALYSIS. PROPOFOL IS INFUSING AT 50MCG/KG/MIN, PT IS ON 100% FIO2, RT CAN TITRATE DOWN O2 AFTER DIALYSIS. NO BM THIS SHIFT. PT IS ANURIC. PT'S DAUGHTER VISITED OUTSIDE THE ROOM, PROVIDED RN WITH DOCUMENTATION OF PT'S INITIAL COVID TEST PRIOR TO HOSPITALIZATION, RN PUT ON CHART. PT'S DAUGHTERS GOAL TO PROVIDING THIS INFORMATION IS SO THAT THE 21 DAYS FOR PATIENT TO BE OUT OF ISOLATION WILL BE FROM THAT DAY, NOT FROM OUR TEST. RN STATED THAT SHE WILL ASK DR. VIDAL TOMORROW IF WE CAN GO BY THAT DATE, DAUGHTER UNDERSTOOD. PT CHECKED ON HOURLY AND PRN BY NURSING STAFF.
[2021-01-13] MEDS ORDERED: NOREPINEPHRINE 4 MG/4 ML AMPUL IV ONE (19:37)
--- NOTE | 2021-01-13 20:00 | NUR ---
RN NOTE RECEIVED PT ORALLY INTUBATED ON MECHVENT, PT RECEIVING DIALYSIS. NO S/SX OF DISTRESS NOTED. PT AFIB ON TELE MONITOR PTS BASELINE, WITH HR IN 120S PT ON LEVOPHED AT 0.4MCG/KG/MIN AND PROPOFOL AT 50MCG/KG/MIN. OGT PATENT AND INPLACE, ON GT FEEDING OF NEPRO, NO RESIDUALS NOTED. KEPT HOB ELEVATED. PT WITH WRIST RESTRAINTS, GOOD SKIN AND CIRCULATION. WILL CONTINUE TO MONITOR.
--- NOTE | 2021-01-13 21:00 | NUR ---
RN NOTE DIALYSIS DONE, REMOVED 500ML PER DIALYSIS NURSE. AV SHUNT DRESSING INTACT, NO BLEEDING NOTED. PTS BP ELEVATED AFTER DIALYSIS, TITRATING LEVOPHED PER PROTOCOL. NO SIGNS OF DISTRESS NOTED. WILL CONTINUE TO MONITOR.
--- NOTE | 2021-01-13 21:35 | NUR ---
RT EKG DONE PER MD ORDER. RESULTS/PRINT OUT GIVEN TO SHAYY BORRERO
--- NOTE | 2021-01-13 21:44 | NUR ---
RN NOTE HELD METOPROLOL AND NITRO. PT ON LEVOPHED.
--- NOTE | 2021-01-13 21:53 | NUR ---
RT FIO2 TITRATED FROM 100% TO 80%, SHAYY BORRERO INFORMED. WILL CONTINUE TO MONITOR
--- NOTE | 2021-01-13 22:00 | NUR ---
RN NOTE NOTED PT WITH ST DEPRESSION. NOTIFIED DR OBREGON. ORDERED EKG AND LABS. EKG RESULTS RELAYED TO DR OBREGON AND DR CHEEK, NO NEW ORDERS WERE MADE. AWAITING FOR LAB RESULTS. PT FO2 TITRATED TO 80% BY RT, NO SIGNS OF DISTRESS NOTED. WILL CONTINUE TO MONITOR.
[2021-01-13 22:33] LABS: CALCIUM, SERUM 8.5 mg/dL (8.5-10.1); CARBON DIOXIDE 21 mmol/L (21-32); CHLORIDE 103 mmol/L (98-107); CREATININE 4.3 mg/dL (0.6-1.3); GLUCOSE 232 mg/dL (74-106); POTASSIUM 4.6 mmol/L (3.5-5.1); SODIUM SERUM 141 mmol/L (136-145); UREA NITROGEN, BLOOD 45 mg/dL (7-18)
[2021-01-13 22:36] LABS: MAGNESIUM 2.3 mg/dL (1.8-2.4); PHOSPHORUS 3.6 mg/dL (2.5-4.9)
--- NOTE | 2021-01-13 23:45 | NUR ---
RN NOTE TROPONIN 0.844, NOTIFIED DR CHEEK AND DR OBREGON. NO NEW ORDER WERE MADE. PT NO S/SX OF DISTRESS WILL CONTINUE TO MONITOR.
[2021-01-14] VITALS (80 sets, daily range): BP systolic 73–113; BP diastolic 44–80
[2021-01-14] MEDS: PROPOFOL 100 ML IV PRN ×5 (00:16→17:35)
[2021-01-14] MEDS: IV NS 0.9% 250 ML IV PRN (03:06)
[2021-01-14] MEDS ORDERED: EPOETIN ALFA (10,000 UNIT) 10,000 UNIT/ML VIAL ONE (03:24)
--- NOTE | 2021-01-14 03:25 | NUR ---
RT FIO2 INCREASED TO 85% FROM 80* DUE TO DESATURATION. SHAYY BORRERO IS AWARE.
--- NOTE | 2021-01-14 03:26 | NUR ---
RT PT RECVD ON AC VENT SETTINGS ORDERED, TRACH IS PATENT AND SECURED. NO SIGNS OF SOB OR RESPIRATORY DISTRESS AT THIS TIME. FIO2 WAS TITRATED FROM 100% TO 80% AFTER DIALYSIS WAS COMPLETED. AMBU BAG IS AT BEDSIDE AND VENT IS PLUGGED INTO RED OUTLET. ALARMS ARE ON AND AUDIBLE. SUCTION DONE PRN/Q2. LITTLE TO NO SECRETIONS WHEN SUCTIONED. FIO2 INCREASED TO 85% DUE TO DESATURATION. RN IS AWARE OF FIO2 CHANGES. EKG WAS ALSO PERFORMED.
--- NOTE | 2021-01-14 03:30 | NUR ---
RN NOTE PT SATING 90-93% WITH FIO2 AT 80%. NO DISTRESS NOTED. RT MADE AWARE. TITRATED TO 85% BY . WILL CONTINUE TO MONITOR.
[2021-01-14] MEDS: PIPERACILLIN /TAZOBACTAM 2.25 G in IV D5W 50 ML IV SCH (05:01)
[2021-01-14] MEDS: SEVELAMER CARBONATE 800 MG POWD.PACK GT SCH ×2 (05:01→12:37)
[2021-01-14] MEDS: DEXAMETHASONE SOD PHOSPHATE 10 MG/ML VIAL IV SCH (05:02)
[2021-01-14] MEDS: BLOOD SUGAR DIAGNOSTIC 1 EACH STRIP IN SCH ×3 (05:31→17:48)
[2021-01-14] MEDS: INSULIN REGULAR, HUMAN 100 UNIT/ML 3 ML VIAL SQ PRN ×3 (05:33→17:51)
[2021-01-14 06:02] LABS: CALCIUM, SERUM 8.2 mg/dL (8.5-10.1); CARBON DIOXIDE 19 mmol/L (21-32); CHLORIDE 100 mmol/L (98-107); CREATININE 4.5 mg/dL (0.6-1.3); GLUCOSE 291 mg/dL (74-106); POTASSIUM 4.8 mmol/L (3.5-5.1); SODIUM SERUM 137 mmol/L (136-145); UREA NITROGEN, BLOOD 55 mg/dL (7-18)
[2021-01-14 07:06] LABS: C-REACTIVE PROTEIN 46.1 mg/dL (0.0-0.9)
--- NOTE | 2021-01-14 07:20 | NUR ---
RN NOTE PT TOLERATES VENT SETTINGS, REMAIN ON 85% FIO2 NO SIGNS OF DISTRESS. TOLERATES GT FEEDING. MINIMAL RESIDUALS NOTED. KEPT HOB ELEVATED. INSULIN WERE GIVEN PER SLIDING SCALE. KEPT CLEAN AND COMFORTABLE, REPOSITIONED. CONTINUE ON PROPOFOL AT 50MCG/KG/MIN, LEVOPHED AT 0.1 MCG/KG/MIN. VS STABLE. ENDORSED TO NEXT SHIFT NURSE FOR ANDRES.
--- NOTE | 2021-01-14 07:30 | NUR ---
RN NOTES PT FOUND SEMI BUENROSTRO'S DISPLAYING NO S/S OF ACUTE DISTRESS, FLACC = 0 AND BILATERAL RISE AND FALL OF THE CHEST IS OBSERVED. CURRENT ELISA'S IS 3. BILATERAL WRIST SOFT RESTRAINTS APPLIED, PULSES PALPATED AND CAP REFILL < 3 SECONDS BILATERALLY. R UA ML AND R AC 20G ACCESSES ARE PATIENT AND INTACT. L FA AV SHUNT INTACT. 40ML RESIDUAL MEASURED FROM ORAL G-TUBE. VSS, RN WILL MONITOR AND TREAT PT THROUGHOUT SHIFT. SAFETY MEASURES IN PLACE, BED LOCKED AND IN LOWEST POSITION, SIDE RAILS UPX2, CALL LIGHT WITHIN REACH, BED ALARM ARMED.
[2021-01-14] MEDS ORDERED: HEPARIN INFUSION/D5W 500 ML IV PRN (08:00)
[2021-01-14] MEDS: CINACALCET HCL 30 MG TABLET GT SCH (08:24)
[2021-01-14] MEDS ORDERED: PANTOPRAZOLE 40 MG VIAL IV SCH ×2 (08:30→21:00)
[2021-01-14] MEDS: ASPIRIN 81 MG TAB.CHEW GT SCH (08:31)
[2021-01-14] MEDS: MIDODRINE HCL (5MG) 5 MG TABLET NG SCH ×3 (08:34→17:06)
[2021-01-14] MEDS: METOPROLOL TARTRATE 25 MG TABLET PO SCH (08:35)
[2021-01-14] MEDS: NEPRO 1,000 ML BOTTLE GT PRN (08:47)
[2021-01-14] MEDS ORDERED: CLOPIDOGREL BISULFATE 75 MG TABLET NG SCH (09:00)
[2021-01-14] MEDS: NITROGLYCERIN 30 GM TUBE TP SCH (09:10)
[2021-01-14 09:12] LABS: BASOPHILS % (AUTO) 0.1 % (0.0-2.0); EOSINOPHILS % (AUTO) 0.3 % (0.0-6.0); HEMATOCRIT 29 % (33-45); LYMPHOCYTES # (AUTO) 0.4 K/uL (0.8-4.8); LYMPHOCYTES % (AUTO) 2.1 % (20.0-44.0); MEAN CORPUSCULAR VOLUME 102 fL (82-100); MONOCYTES # (AUTO) 0.6 K/uL (0.1-1.30); MONOCYTES % (AUTO) 3.4 % (2.0-12.0); NEUTROPHILS # (AUTO) 15.7 K/uL (1.8-8.9); NEUTROPHILS % (AUTO) 94.1 % (43.0-81.0); PLATELET COUNT (AUTO) 77 K/uL (150-450); RED BLOOD CELL COUNT(AUTO) 2.88 MIL/uL (4.0-5.2); WHITE BLOOD COUNT (AUTO) 16.7 K/uL (4.3-11.0)
[2021-01-14 09:13] LABS: HEMOGLOBIN 9.9 g/dL (11.5-14.8)
[2021-01-14 09:15] LABS: MEAN CORPUSCULAR HGB CONC 34 g/dl (31.0-36.0)
[2021-01-14] MEDS ORDERED: MEROPENEM 500 MG in IV NS 0.9% 50 ML IV SCH (10:00)
[2021-01-14] MEDS: NOREPINEPHRINE 8 MG in IV NS 0.9% 242 ML IV PRN ×2 (11:10→19:08)
[2021-01-14 11:13] LABS: BAND % (MANUAL) 2 % (0.0-5.0); LYMPHOCYTES % (MANUAL) 5 % (16-48); MONOCYTES % (MANUAL) 1 % (0-11.0); NEUTROPHILS % (MANUAL) 92 (42-76)
--- NOTE | 2021-01-14 13:30 | NUR ---
RN NOTE DIPRIVAN WAS HUNG AT 1330 BUT NOT SAVED POST SCAN. RN NOTIFIED PHARMACY. PHARMACY ACKNOWLEDGED.
--- NOTE | 2021-01-14 15:40 | NUR ---
MD COMMUNICATION RN INFORMED MD OBREGON THAT RESIDUAL PRODUCED DARK TARRY CONTENT. ACKNOWLEDGED AND GAVE ORDERS: DO NOT GIVE HEPARIN, PROTONIX 40MG IV BID, CARAFATE 1G NG Q6H, HOLD FEEDING, 0.9% NS @ 60 ML/HR, CHANGE DIET TO NPO EXCEPT MEDS, INFORM DR. CHEEK. RN ACKNOWLEDGED AND WILL EXECUTE ORDERS DIRECTED.
--- NOTE | 2021-01-14 15:45 | NUR ---
MD COMMUNICATION RN INFORMED DR CHEEK OF RESIDUAL FINDINGS, PREVIOUS COMMUNICATION WITH DR OBREGON. ACKNOWLEDGED AND GAVE NO NEW ORDERS.
[2021-01-14] MEDS ORDERED: IV NS 0.9% 1,000 ML IV PRN (16:00)
--- NOTE | 2021-01-14 16:35 | NUR ---
MD COMMUNICATION MD SPOKE TO FAMILY, DISCUSSED CHANGE IN STATUS. DAUGHTER WANTED STATUS TO REMAIN AT FULL CODE.
[2021-01-14] MEDS ORDERED: DEXAMETHASONE SOD PHOSPHATE 10 MG/ML VIAL IV SCH (17:00)
[2021-01-14] MEDS ORDERED: SUCRALFATE 1 G TABLET GT SCH (18:00)
--- NOTE | 2021-01-14 19:19 | NUR ---
RN NOTES PT FOUND SEMI FOWLERS POSITION DISPLAYING NO S/S OF DISTRESS, FLACC = 0 AND BILATERAL RISE AND FALL OF THE CHEST OBSERVED. ELISA'S = 3. R UA ML PATIENT AND INTACT. SBAR AND REPORT GIVEN TO RISK INTERN RN. SAFETY MEASURES IN PLACE, BED LOCKED AND IN LOWEST POSITION, SIDE RAILS UPX2, CALL LIGHT WITHIN REACH, BED ALARM ARMED. PT ENDORSED FOR ANDRES.
[2021-01-14] MEDS ORDERED: CALCIUM CHLORIDE 1,000 MG/10 ML DISP.SYRIN ONE ×2 (20:14→20:21)
[2021-01-14] MEDS ORDERED: EPINEPHRINE (1:10,000) SYRINGE 1 MG/10 ML DISP.SYRIN IVP ONE (20:21)
[2021-01-14] MEDS ORDERED: SODIUM BICARBONATE SYR 50 MEQ/50 ML DISP.SYRIN IV ONE (20:21)
[2021-01-14] MEDS ORDERED: CALCIUM CHLORIDE 1,000 MG/10 ML DISP.SYRIN IV ONE (20:21)
[2021-01-14] MEDS ORDERED: ATROPINE SULFATE 1 MG/10 ML DISP.SYRIN IV ONE (20:21)
[2021-01-14] MEDS ORDERED: SEVELAMER CARBONATE 800 MG POWD.PACK GT SCH (21:00)
--- NOTE | 2021-01-14 21:30 | NUR ---
RN NOTE 2003 - PT BRADYCARDIC, HR 30.PT GIVEN ATROPINE BY CHARGE NURSE. STAFF NURSES AND RT AT BEDSIDE. 2004 - NO PALPABLE PULSE, UNRESPONSIVE. CODE BLUE ACTIVATED WENT TO [place]YSTOLE. STARTED CPR. ER MD AT BEDSIDE. NOTIFIED FAMILY. 2021 - ER MD PRONOUNCED TIME OF . POST MORTEM GIVEN. FAMILY CAME OUTSIDE THE ROOM. DUE TO COVID PROTOCOL. PT WITH NO BELONGINGS. DR OBREGON MADE AWARE. 2108 - CALLED [facility]; SPOKE TO PATRICK 2115 - CALLED [facility] PER FAMILY REQUEST.
== END 2021-01-14 20:22 | DRG 871 ==
LOC: ER 16:41 → TELE1 19:15 → ICU 01-09 20:07
PROVIDERS: ADMIT Internal Medicine; ATTEND Internal Medicine
PROC: 5A1D70Z Performance of Urinary Filtration, Intermittent, Less than 6 Hours Per Day (ICD-10-PCS; 2021-01-09)
PROC: 5A1945Z Respiratory Ventilation, 24-96 Consecutive Hours (ICD-10-PCS; principal; 2021-01-11)
PROC: 0BH18EZ Insertion of Endotracheal Airway into Trachea, Via Natural or Artificial Opening Endoscopic (ICD-10-PCS; 2021-01-11)
PROC: 05H533Z Insertion of Infusion Device into Right Subclavian Vein, Percutaneous Approach (ICD-10-PCS; 2021-01-11)
PROC: B546ZZA Ultrasonography of Right Subclavian Vein, Guidance (ICD-10-PCS; 2021-01-11)
PROC: 5A12012 Performance of Cardiac Output, Single, Manual (ICD-10-PCS; 2021-01-14)
DX: A41.89 Other specified sepsis (principal); U07.1 COVID-19; J12.82 Pneumonia due to coronavirus disease 2019; N18.6 End stage renal disease; J96.01 Acute respiratory failure with hypoxia; I21.A1 Myocardial infarction type 2; J96.02 Acute respiratory failure with hypercapnia; J15.9 Unspecified bacterial pneumonia; R65.21 Severe sepsis with septic shock; I12.0 Hypertensive chronic kidney disease with stage 5 chronic kidney disease or end stage renal disease; I48.20 Chronic atrial fibrillation, unspecified; I13.2 Hypertensive heart and chronic kidney disease with heart failure and with stage 5 chronic kidney disease, or end stage renal disease; G93.40 Encephalopathy, unspecified; K92.2 Gastrointestinal hemorrhage, unspecified; E11.22 Type 2 diabetes mellitus with diabetic chronic kidney disease; Z99.2 Dependence on renal dialysis; E11.65 Type 2 diabetes mellitus with hyperglycemia; E83.9 Disorder of mineral metabolism, unspecified; D63.1 Anemia in chronic kidney disease; I95.9 Hypotension, unspecified; D69.59 Other secondary thrombocytopenia; I50.9 Heart failure, unspecified; D53.9 Nutritional anemia, unspecified
CPT/HCPCS: 31720; 36410; 36415; 36600; 71045-TC; 80048-TC; 80053-TC; 80076-TC; 80202-TC; 82272-TC; 82533; 82550-TC; 82553; 82803-TC; 82962-TC; 83605-TC; 83615-TC; 83735-TC; 83880; 84100-TC; 84478-TC; 84484-TC; 85025-TC; 85378-TC; 85385-TC; 85610-TC; 85730-TC; 86140-TC; 86706; 87070-TC; 87081-TC; 87340; 90935-TC; 93307-TC; 93970-TC; 94002-TC; 94003-TC; 94799-TC; A4216; C9113; G0378; J0171; J0461; J0885; J1100; J1160; J1644; J1815; J2185; J2543; J3370; J3490; J7030; J7040; J7050; J7060; P9047; U0003